=== PATIENT | female | born 1950 | race Caucasian/White ===

== ENCOUNTER 2018-02-08 20:30 | Emergency (ER) | payer OTHER ==
[~2018-02-08] VITALS: Ht 162.6 cm; Wt 81.6 kg
[~2018-02-08 20:30] MED LIST: LEVSIN/SL0.125 MG SL; PROTONIX40 MG PO; TOPROL XL50 MG
== END 2018-02-08 22:54 | disposition home or self-care (01) ==
LOC: ER 20:30
DX: N30.81 Other cystitis with hematuria (principal); B96.29 Other Escherichia coli [E. coli] as the cause of diseases classified elsewhere

== ENCOUNTER 2019-10-17 09:17 | Day surgery (SDC) | payer OTHER | END 2019-10-17 16:20 | disposition home or self-care (01) | LOC: AMB-ENDOS 09:17 → ADM 14:45 → AMB-ENDOS 14:45 | PROVIDERS: ATTEND Colon & Rectal Surgery | DX: K57.32 Diverticulitis of large intestine without perforation or abscess without bleeding (principal); K64.1 Second degree hemorrhoids ==

== ENCOUNTER → 2020-06-09 08:00 | Outpatient (CLI) | payer OTHER ==
[~2020-06-09 08:00] MED LIST changes: +CRESTOR20 MG PO; +TOPROL XL100 M1 PO
== END | disposition home or self-care (01) ==
LOC: LAB 08:00 → EDSTATUS 08:00 → CIR.AMB 06-16 08:00
PROVIDERS: ATTEND Surgery
DX: K43.2 Incisional hernia without obstruction or gangrene (principal); D68.8 Other specified coagulation defects; Z01.818 Encounter for other preprocedural examination; Z20.818 Contact with and (suspected) exposure to other bacterial communicable diseases; Z20.822 Contact with and (suspected) exposure to COVID-19; Z01.810 Encounter for preprocedural cardiovascular examination

== ENCOUNTER → 2020-09-17 07:03 | Outpatient (CLI) | payer OTHER | END | disposition home or self-care (01) | LOC: LAB 07:03 | PROVIDERS: ATTEND Internal Medicine Hematology & Oncology | DX: D50.8 Other iron deficiency anemias (principal); R79.9 Abnormal finding of blood chemistry, unspecified; I10 Essential (primary) hypertension; R74.02 Elevation of levels of lactic acid dehydrogenase [LDH]; K76.89 Other specified diseases of liver; D68.8 Other specified coagulation defects; D51.8 Other vitamin B12 deficiency anemias; E78.2 Mixed hyperlipidemia; C50.919 Malignant neoplasm of unspecified site of unspecified female breast; R97.8 Other abnormal tumor markers; C25.9 Malignant neoplasm of pancreas, unspecified; R77.2 Abnormality of alphafetoprotein ==

== ENCOUNTER 2021-05-16 09:15 | Outpatient (CLI) | payer OTHER | END 2021-05-16 09:18 | disposition home or self-care (01) | LOC: SONOGRAMA 09:15 | PROVIDERS: ATTEND Pathology Anatomic Pathology & Clinical Pathology | DX: E04.1 Nontoxic single thyroid nodule (principal) ==